=== PATIENT | male | born 1945 | race Caucasian/White ===

== ENCOUNTER 2016-08-25 21:29 | Emergency (ER) | payer MEDICARE, OTHER ==
[~2016-08-25] VITALS: Ht 188 cm; Wt 79.8 kg
[2016-08-25 21:42] VITALS: BP 116/81
== END 2016-08-25 23:59 | disposition home or self-care (01) ==
LOC: ER 21:36
DX: S61.412A Laceration without foreign body of left hand, initial encounter (principal); R51 Headache; F10.129 Alcohol abuse with intoxication, unspecified; W19.XXXA Unspecified fall, initial encounter; Y93.89 Activity, other specified; Y99.8 Other external cause status; Y92.89 Other specified places as the place of occurrence of the external cause
CPT/HCPCS: 36415; 70450; 80320

== ENCOUNTER 2018-02-02 10:42 | Emergency (ER) | payer MEDICARE, OTHER ==
[~2018-02-02] VITALS: Ht 188 cm; Wt 71.7 kg
[2018-02-02 11:19] VITALS: BP 146/77
[2018-02-02] MEDS ORDERED: MORPHINE SULF INJ 2 MG/ML SYRINGE 1ML IV ONE (12:15)
[2018-02-02] MEDS ORDERED: ONDANSETRON HCL 4 MG/2 ML VIAL IV ONE (12:15)
[2018-02-02 12:41] LABS: Hemoglobin 13.5 g/dL (13.5-17.5); Monocytes # (auto) 0.5 uL; Neutrophils # (auto) 3.1 uL; Nucleated Red Blood Cells % 0.1 %
[2018-02-02 12:43] LABS: Basophils # (auto) 0 uL; Basophils % (auto) 0.6 % (0.0-2.0); Eosinophils # (auto) 0.1 uL; Eosinophils % (auto) 1.3 % (0.0-7.0); Hematocrit 38.9 % (41.0-53.0); Lymphocytes # (auto) 0.7 uL; Lymphocytes % (auto) 16.7 % (10.0-50.0); Mean Corpuscular Hemoglobin 36.3 pg (28.0-32.0); Mean Corpuscular Hgb Conc. 34.6 g/dL (32.0-36.0); Mean Corpuscular Volume 104.8 fL (80.0-100.0); Monocytes % (auto) 11.6 % (0.0-12.0); Neutrophils % (auto) 69.8 % (37.0-80.0); Platelet Count (auto) 143 10^3/uL (140-450); Red Blood Cells 3.71 10^6/uL (4.5-5.90); Red Cell Distribution Width 13.6 % (11.8-14.3); White Blood Cell 4.4 10^3/uL (4.4-10.8)
[2018-02-02 12:54] LABS: Albumin 3.7 g/dL (3.4-5.0); BUN/Creatinine Ratio 14.7; Calcium 8.8 mg/dL (8.5-10.1); Potassium 4.4 mmol/L (3.5-5.1); Total Protein 7.7 g/dL (6.4-8.2)
[2018-02-02] MEDS ORDERED: IOHEXOL 300 MG/ML 75ml BOTTLE IJ ONE (13:04)
[2018-02-02] MEDS ORDERED: SODIUM CHLORIDE 0.9% 500 ML IV ONE (14:15)
== END 2018-02-02 14:44 | disposition home or self-care (01) ==
LOC: ER 10:42
DX: S22.42XA Multiple fractures of ribs, left side, initial encounter for closed fracture (principal); I10 Essential (primary) hypertension; W18.39XA Other fall on same level, initial encounter; Y93.01 Activity, walking, marching and hiking; Y92.090 Kitchen in other non-institutional residence as the place of occurrence of the external cause; Y99.8 Other external cause status
CPT/HCPCS: 36415; 71101; 74177; 80053; 85025; 96374; 96375; 99285; J2270; J2405; Q9967

== ENCOUNTER 2020-11-13 09:13 | Inpatient (IN) | payer MEDICARE ==
[~2020-11-13] VITALS: Ht 185.4 cm; Wt 75.0 kg
[2020-11-13 10:14] LABS: Basophils # (auto) 0 10 ^3/uL (0-0.2); Eosinophils # (auto) 0.1 10 ^3/uL (0-0.8); Hemoglobin 15.5 g/dL (13.5-17.5); Lymphocytes # (auto) 1.2 10 ^3/uL (0.4-5.4); Monocytes # (auto) 0.6 10 ^3/uL (0-1.3); Nucleated Red Blood Cells % 0.2 %; White Blood Cell 3.9 10^3/uL (4.4-10.8)
[2020-11-13 10:15] LABS: Basophils % (auto) 0.7 % (0.0-2.0); Eosinophils % (auto) 3.2 % (0.0-7.0); Hematocrit 44.9 % (41.0-53.0); Lymphocytes % (auto) 31.6 % (10.0-50.0); Mean Corpuscular Hemoglobin 35.8 pg (28.0-32.0); Mean Corpuscular Hgb Conc. 34.6 g/dL (32.0-36.0); Mean Corpuscular Volume 103.6 fL (80.0-100.0); Monocytes % (auto) 14.4 % (0.0-12.0); Neutrophils # (auto) 1.9 10 ^3/uL (1.6-8.6); Neutrophils % (auto) 50.1 % (37.0-80.0); Platelet Count (auto) 130 10^3/uL (140-450); Red Blood Cells 4.33 10^6/uL (4.5-5.90); Red Cell Distribution Width 13.8 % (11.8-14.3)
[2020-11-13 10:24] LABS: Albumin 3.9 g/dL (3.4-5.0); Calcium 9.1 mg/dL (8.5-10.1)
[2020-11-13 10:26] LABS: BUN/Creatinine Ratio 15.5; Bilirubin, Total 0.9 mg/dL (0.2-1.0); Total Protein 7.4 g/dL (6.4-8.2)
[2020-11-13 10:52] LABS: INR 1.08 (0.9-1.15); Partial Thromboplastin Time 28.5 sec (23.0-31.2)
[2020-11-13 11:14] LABS: Urine Bacteria NONE SEEN /hpf (None Seen); Urine Blood Negative /uL (Negative); Urine Specific Gravity 1.013 (1.001-1.035); Urine WBC 1 /hpf (0 - 3); Urine WBC Clumps PRESENT /hpf (None Seen)
[2020-11-13] MEDS ORDERED: FUROSEMIDE 40 MG/4 ML VIAL IV ONE (13:15)
[2020-11-13] MEDS ORDERED: SPIRONOLACTONE 25 MG TAB PO ONE (13:15)
[2020-11-13] MEDS ORDERED: IOHEXOL 350 MG/ML 100ML IJ ONE (13:19)
[2020-11-13] MEDS ORDERED: MORPHINE SULF INJ 2 MG/ML SYRINGE 1ML IV PRN ×2 (16:00)
[2020-11-13] MEDS ORDERED: NITROGLYCERIN 0.4 MG SL TAB SL PRN (16:00)
[2020-11-13] MEDS ORDERED: ONDANSETRON HCL 4 MG/2 ML VIAL IV PRN (16:00)
[2020-11-13] MEDS ORDERED: ACETAMINOPHEN 500 MG TAB PO PRN (16:00)
[2020-11-13] MEDS ORDERED: HYDROcodone-ACET 5/325MG TAB PO PRN (16:00)
[2020-11-13 18:20] VITALS: BP 147/90
[2020-11-13] MEDS: METOPROLOL TARTRATE 25 MG TAB PO SCH (22:02)
[2020-11-13 22:08] VITALS: BP 147/86
[2020-11-13] MEDS ORDERED: TEMAZEPAM 15 MG CAP PO ONE (22:45)
[2020-11-14 04:58] VITALS: BP 127/81
[2020-11-14 05:52] LABS: Eosinophils # (auto) 0.1 10 ^3/uL (0-0.8); Hematocrit 44.2 % (41.0-53.0); Lymphocytes # (auto) 1.1 10 ^3/uL (0.4-5.4); Neutrophils # (auto) 2.3 10 ^3/uL (1.6-8.6); Nucleated Red Blood Cells % 0.1 %; Red Blood Cells 4.28 10^6/uL (4.5-5.90)
[2020-11-14 05:54] LABS: Basophils # (auto) 0.1 10 ^3/uL (0-0.2); Basophils % (auto) 1.2 % (0.0-2.0); Eosinophils % (auto) 1.9 % (0.0-7.0); Hemoglobin 15.5 g/dL (13.5-17.5); Mean Corpuscular Hemoglobin 36.3 pg (28.0-32.0); Mean Corpuscular Hgb Conc. 35.2 g/dL (32.0-36.0); Mean Corpuscular Volume 103.1 fL (80.0-100.0); Monocytes # (auto) 0.7 10 ^3/uL (0-1.3); Monocytes % (auto) 17.1 % (0.0-12.0); Neutrophils % (auto) 53.8 % (37.0-80.0); Platelet Count (auto) 111 10^3/uL (140-450); Red Cell Distribution Width 14.1 % (11.8-14.3); White Blood Cell 4.4 10^3/uL (4.4-10.8)
[2020-11-14 06:09] LABS: INR 1.18 (0.9-1.15)
[2020-11-14 06:13] LABS: BUN/Creatinine Ratio 18.5; Calcium 9.1 mg/dL (8.5-10.1); Potassium 3.8 mmol/L (3.5-5.1)
[2020-11-14] MEDS ORDERED: LOSA100T33 PO (06:48)
[2020-11-14] MEDS ORDERED: ATOR10TA52 PO (06:48)
[2020-11-14] MEDS ORDERED: IBUP800T27 PO (06:48)
[2020-11-14] MEDS ORDERED: METO-289 PO (06:48)
[2020-11-14] MEDS ORDERED: MULT-928 PO (06:48)
[2020-11-14 08:50] VITALS: BP 153/83
[2020-11-14] MEDS: THIAMINE HCL 100 MG TAB PO SCH (09:19)
[2020-11-14] MEDS: ASPirin-EC 81 mg tab PO SCH (09:19)
[2020-11-14] MEDS: METOPROLOL TARTRATE 25 MG TAB PO SCH ×2 (09:20→22:11)
[2020-11-14] MEDS: MULTIPLE VITAMIN TAB PO SCH (09:20)
[2020-11-14] MEDS: NITROGLYCERIN 0.4MG/HR TOPICAL PATCH TD SCH (09:23)
[2020-11-14] MEDS ORDERED: LORazepam 2MG/ML-1ML VIAL IV PRN (10:15)
[2020-11-14] MEDS ORDERED: cloNIDine HCL 0.1 MG TAB PO PRN (10:15)
[2020-11-14] MEDS ORDERED: POTASSIUM CHL 10 Meq TABLET PO ONE (10:15)
[2020-11-14] MEDS ORDERED: FUROSEMIDE 20 MG TAB PO ONE (10:15)
[2020-11-14 12:46] VITALS: BP 122/77
[2020-11-14 16:38] VITALS: BP 131/80
[2020-11-14] MEDS ORDERED: TEMAZEPAM 15 MG CAP PO ONE (22:00)
[2020-11-14] MEDS: ATORVASTATIN 20 MG TAB PO SCH (22:10)
[2020-11-15 05:05] VITALS: BP 140/89
[2020-11-15 05:31] LABS: BUN/Creatinine Ratio 21.1; Calcium 9.3 mg/dL (8.5-10.1); Magnesium 2.2 mg/dL (1.6-2.6); Potassium 4.4 mmol/L (3.5-5.1)
[2020-11-15 08:55] VITALS: BP 137/93
[2020-11-15] MEDS: THIAMINE HCL 100 MG TAB PO SCH (09:42)
[2020-11-15] MEDS: ASPirin-EC 81 mg tab PO SCH (09:42)
[2020-11-15] MEDS: FUROSEMIDE 20 MG TAB PO SCH (09:43)
[2020-11-15] MEDS: MULTIPLE VITAMIN TAB PO SCH (09:43)
[2020-11-15] MEDS: METOPROLOL TARTRATE 25 MG TAB PO SCH ×2 (09:44→21:42)
[2020-11-15] MEDS: POTASSIUM CHL 10 Meq TABLET PO SCH (09:44)
[2020-11-15] MEDS: NITROGLYCERIN 0.4MG/HR TOPICAL PATCH TD SCH (10:00)
[2020-11-15 12:41] VITALS: BP 125/83
[2020-11-15 16:23] VITALS: BP 133/73
[2020-11-15] MEDS ORDERED: TEMAZEPAM 15 MG CAP PO PRN (17:00)
[2020-11-15 21:30] VITALS: BP 109/59
[2020-11-15] MEDS: ATORVASTATIN 20 MG TAB PO SCH (21:42)
[2020-11-16 05:37] VITALS: BP 120/66
[2020-11-16 06:59] LABS: Potassium 3.9 mmol/L (3.5-5.1)
[2020-11-16 07:14] LABS: BUN/Creatinine Ratio 26.1; Calcium 8.8 mg/dL (8.5-10.1); Magnesium 2.1 mg/dL (1.6-2.6)
[2020-11-16 08:31] VITALS: BP 117/80
[2020-11-16] MEDS: ASPirin-EC 81 mg tab PO SCH (09:23)
[2020-11-16] MEDS: THIAMINE HCL 100 MG TAB PO SCH (09:24)
[2020-11-16] MEDS: MULTIPLE VITAMIN TAB PO SCH (09:24)
[2020-11-16] MEDS: POTASSIUM CHL 10 Meq TABLET PO SCH (09:24)
[2020-11-16] MEDS: FUROSEMIDE 20 MG TAB PO SCH (09:25)
[2020-11-16] MEDS: NITROGLYCERIN 0.4MG/HR TOPICAL PATCH TD SCH (09:26)
[2020-11-16] MEDS: METOPROLOL TARTRATE 25 MG TAB PO SCH ×2 (10:00→21:34)
[2020-11-16] MEDS ORDERED: FUROSEMIDE 20 MG/2 ML VIAL IV ONE (11:45)
[2020-11-16] MEDS ORDERED: POTASSIUM CHL 20 Meq TABLET PO ONE (11:45)
[2020-11-16 13:00] VITALS: BP 131/84
[2020-11-16 17:00] VITALS: BP 124/78
[2020-11-16] MEDS ORDERED: traMADol HCL 50 MG TAB PO PRN (18:15)
[2020-11-16] MEDS ORDERED: ACETAMINOPHEN 325 MG TAB PO PRN (18:15)
[2020-11-16 20:10] VITALS: BP 137/87
[2020-11-16] MEDS: ATORVASTATIN 20 MG TAB PO SCH (21:35)
[2020-11-16 22:00] VITALS: BP 137/87
[2020-11-17 05:00] VITALS: BP 140/84
[2020-11-17 08:56] VITALS: BP 139/79
[2020-11-17] MEDS: ASPirin-EC 81 mg tab PO SCH (09:35)
[2020-11-17] MEDS: MULTIPLE VITAMIN TAB PO SCH (09:35)
[2020-11-17] MEDS: FUROSEMIDE 20 MG TAB PO SCH (09:35)
[2020-11-17] MEDS: POTASSIUM CHL 10 Meq TABLET PO SCH (09:35)
[2020-11-17] MEDS: METOPROLOL TARTRATE 25 MG TAB PO SCH (09:36)
[2020-11-17] MEDS: THIAMINE HCL 100 MG TAB PO SCH (09:37)
[2020-11-17] MEDS: NITROGLYCERIN 0.4MG/HR TOPICAL PATCH TD SCH (09:46)
[2020-11-17 12:41] VITALS: BP 122/72
[2020-11-17 13:35] VITALS: BP 122/72
== END 2020-11-17 14:05 | disposition home or self-care (01) | DRG 281 ==
LOC: ER 09:13 → TELE 15:48 → TELE-CENTR 17:47
PROVIDERS: ADMIT Nurse Practitioner Acute Care; ATTEND Internal Medicine
DX: I11.0 Hypertensive heart disease with heart failure (principal); I21.4 Non-ST elevation (NSTEMI) myocardial infarction; D68.59 Other primary thrombophilia; I50.41 Acute combined systolic (congestive) and diastolic (congestive) heart failure; I48.91 Unspecified atrial fibrillation; I27.20 Pulmonary hypertension, unspecified; D75.89 Other specified diseases of blood and blood-forming organs; E78.5 Hyperlipidemia, unspecified; R29.6 Repeated falls; Z20.822 Contact with and (suspected) exposure to COVID-19; R00.1 Bradycardia, unspecified; F10.10 Alcohol abuse, uncomplicated
CPT/HCPCS: 36415; 71045; 71275; 80048; 80053; 81001; 83735; 83880; 84439; 84443; 84484; 85025; 85379; 85610; 85730; 86141; 87426; 93005; 93306; 96374; G0378